=== PATIENT | female | born 1985 | race Caucasian/White ===

== ENCOUNTER → 2021-12-29 | Outpatient (CLI) | payer BC ==
--- NOTE | 2021-12-29 19:23 | CT ---
EXAMINATION TYPE: CT chest wo con DATE OF EXAM: 12/29/2021 INDICATION: CHRONIC COUGH CT DLP: 254 mGy.cm Automated Exposure Control for Dose Reduction was Utilized. TECHNIQUE AND CONTRAST: Axial CT scan of the chest in the prone and supine positions as per high-resolution protocol without IV contrast administration. COMPARISON: None available FINDINGS: Minimal right anterior basal linear pulmonary atelectasis. Grossly unremarkable lungs otherwise. No a kirsten of pulmonary consolidation, groundglass opacity, reticulations, fibrotic changes, traction bronch iectasis, honeycombing or cystic changes. Patent central airways. Suboptimal assessment for lung nodules. No pleural or pericardial effusion. N o gross cardiomegaly. No pathologically enlarged lymph nodes in the chest by this CT scan. Bulky sple en, please correlate clinically. No aggressive bone lesion. IMPRESSION: No significant pulmonary abnormality identified. Incidental findings as described above.
== END | disposition home or self-care (01) ==
LOC: RADCTMAIN 13:42
PROVIDERS: ATTEND Internal Medicine Critical Care Medicine
DX: R05.3 Chronic cough (principal)
CPT/HCPCS: 71250